=== PATIENT | female | born 1995 | race Caucasian/White ===

== ENCOUNTER 2016-03-17 22:07 | Emergency (ER) | payer SELFPAY ==
--- NOTE | 2016-03-17 22:36 | ER Document Report ---
ED Psych Disorder / Suicide - General Chief Complaint: Overdose Stated Complaint: SUICIDAL IDEATION Time seen by provider: 22:36 Mode of Arrival: Stretcher Information source: Patient TRAVEL OUTSIDE OF THE [place] IN LAST 30 DAYS: No - HPI Patient complains to provider of: Overdose, Suicidal ideation, Suicidal plan, Suicidal attempt, Self injury Onset: This evening Quality of pain: No pain Suicide Risk Factors: Depressed, No spouse, Substance abuse Suicide Attempt Method: Overdose, Stabbing/Cutting Injury to: Upper extremity - Left forearm Normal mood: No Associated symptoms: Depressed, Flat affect Similar symptoms previously: Yes Recently seen / treated by doctor: No Notes: Patient is a 20-year-old female who presents to the emergency room via EMS for suicidal ideation with a plan to overdose, states that she attempted to overdose on four 5 mg Percocets, 0.5 mg of Xanax and whiskey, she also recently caused some superficial lacerations to her left forearm and has a history of cutting previously, she reports that these feelings stem from her ex-girlfriend recently trying to contact her when she finally felt she was over this person, patient does have a history of mental illness in the past, has not been in any type of therapy recently and does not take any prescribed medications at the present time - Related Data Allergies/Adverse Reactions: No Known Allergies Allergy (Verified 02/12/16 14:50) Past Medical History - General Information source: Patient - Social History Smoking Status: Current Every Day Smoker Frequency of alcohol use: Occasional Drug Abuse: Marijuana, Prescription drugs Family History: Reviewed & Not Pertinent Psychiatric Medical History: Reports: Hx Depression Surgical Hx: Negative - Immunizations Hx Diphtheria, Pertussis, Tetanus Vaccination: Yes Review of Systems - Review of Systems Constitutional: No symptoms reported EENT: No symptoms reported Cardiovascular: No symptoms reported Respiratory: No symptoms reported Gastrointestinal: No symptoms reported Genitourinary: No symptoms reported Female Genitourinary: No symptoms reported Musculoskeletal: No symptoms reported Skin: See HPI Hematologic/Lymphatic: No symptoms reported Neurological/Psychological: See HPI -: Yes All other systems reviewed and negative Physical Exam - Vital signs Vitals: Temp Pulse Resp BP Pulse Ox 98.2 F 85 16 142/80 H 100 03/17/16 22:19 03/17/16 22:19 03/17/16 22:19 03/17/16 22:19 03/17/16 22:19 Interpretation: Normal - General General appearance: Appears well, Alert - HEENT Head: Normocephalic, Atraumatic Eyes: Normal Pupils: PERRL - Respiratory Respiratory status: No respiratory distress Chest status: Nontender Breath sounds: Normal Chest palpation: Normal - Cardiovascular Rhythm: Regular Heart sounds: Normal auscultation Murmur: No - Abdominal Inspection: Normal Distension: No distension Bowel sounds: Normal Tenderness: Nontender Organomegaly: No organomegaly - Back Back: Normal, Nontender - Extremities General upper extremity: Nontender, Normal color, Normal ROM, Normal temperature General lower extremity: Normal inspection, Nontender, Normal color, Normal ROM , Normal temperature, Normal weight bearing. No: Bassem's sign Forearm: Other - Multiple superficial self-inflicted lacerations to left forearm - Neurological Neuro grossly intact: Yes Cognition: Normal Orientation: AAOx4 [place] Coma Scale Eye Opening: Spontaneous [place] Coma Scale Verbal: Oriented [place] Coma Scale Motor: Obeys Commands [place] Coma Scale Total: 15 Speech: Normal Motor strength normal: LUE, RUE, LLE, RLE Sensory: Normal - Psychological Associated symptoms: Depressed, Flat affect - Skin Skin Temperature: Warm Skin Moisture: Dry Skin Color: Normal Course - Re-evaluation Re-evalutation: 03/18/16 00:25 Patient will be held on IVC paperwork until evaluation by mental health team in the morning, she is otherwise medically cleared, she reports her last tetanus shot was approximately one year ago and up to date - Vital Signs Vital signs: Temp Pulse Resp BP Pulse Ox 98.2 F 85 16 142/80 H 100 03/17/16 22:19 03/17/16 22:19 03/17/16 22:19 03/17/16 22:19 03/17/16 22:19 - Laboratory Result Diagrams: 03/17/16 22:30 03/17/16 22:30 Laboratory results interpreted by me: 03/17/16 03/17/16 22:30 22:30 MCV 98 H Potassium 3.4 L Chloride 108 H BUN 6 L Total Bilirubin 1.7 H Salicylates < 1.0 L Acetaminophen < 10 L - EKG Interpretation by Tx EKG shows normal: Sinus rhythm Rate: Normal Rhythm: NSR Discharge - Discharge Clinical Impression: Suicidal ideation, Self-destructive behavior Condition: Stable Disposition: PSYCH HOSP/UNIT
[2016-03-17 22:47] LABS: ABSOLUTE BASOPHILS # (AUTO) 0.1 10^3/uL (0.0-0.2); ABSOLUTE EOSINOPHILS # (AUTO) 0.1 10^3/uL (0.0-0.6); ABSOLUTE LYMPHOCYTES (AUTO) 3.3 10^3/uL (0.5-4.7); ABSOLUTE MONOCYTES (AUTO) 0.8 10^3/uL (0.1-1.4); BASOPHILS % (AUTO) 0.7 % (0-2); EOSINOPHILS % (AUTO) 1.6 % (0-6); HEMATOCRIT 43.6 % (36.0-47.0); HEMOGLOBIN 14.5 g/dL (12.0-15.5); HGB HCT DIFFERENCE -0.1; LYMPHOCYTES % (AUTO) 35.2 % (13-45); MEAN CORPUSCULAR HEMOGLOBIN 32.5 pg (27.0-33.4); MEAN CORPUSCULAR HGB CONC 33.2 g/dL (32.0-36.0); MEAN CORPUSCULAR VOLUME 98 fl (80-97); MONOCYTES % (AUTO) 8.1 % (3-13); RED BLOOD COUNT 4.46 10^6/uL (3.72-5.28); RED CELL DISTRIBUTION WIDTH 13.8 % (11.5-14.0); SEGMENTED NEUTROPHILS % (AUTO) 54.4 % (42-78); WHITE BLOOD COUNT 9.3 10^3/uL (4.0-10.5)
[2016-03-17 23:07] LABS: ALANINE AMINOTRANSFERASE 25 U/L (9-52); ALBUMIN 4.8 g/dL (3.5-5.0); ALCOHOL 87 mg/dL (NONE DETECTED); ALKALINE PHOSPHATASE 64 U/L (38-126); ANION GAP 13 (5-19); ASPARTATE AMINO TRANSFERASE 20 U/L (14-36); BILIRUBIN,TOTAL 1.7 mg/dL (0.2-1.3); BLOOD UREA NITROGEN 6 mg/dL (7-20); CALCIUM 9.5 mg/dL (8.4-10.2); CARBON DIOXIDE 24 mmol/L (22-30); CHLORIDE 108 mmol/L (98-107); CREATININE RESULT 0.75 mg/dL (0.52-1.25); GLUCOSE 76 mg/dL (75-110); POTASSIUM 3.4 mmol/L (3.6-5.0); TOTAL PROTEIN 7.4 g/dL (6.3-8.2)
[2016-03-17 23:15] LABS: APPEARANCE,URINE SLIGHTLY-CLOUDY; BILIRUBIN,URINE NEGATIVE (NEGATIVE); GLUCOSE, URINE NEGATIVE (NEGATIVE); KETONES,URINE NEGATIVE (NEGATIVE); LEUKOCYTE ESTERASE,URINE NEGATIVE (NEGATIVE); NITRITE,URINE NEGATIVE (NEGATIVE); PROTEIN,URINE NEGATIVE (NEGATIVE); URINE SPECIFIC GRAVITY 1.011; UROBILINOGEN,URINE NEGATIVE mg/dL (<2.0)
[2016-03-17 23:33] LABS: URINE BARBITURATES SCREEN NEGATIVE; URINE METHADONE SCREEN NEGATIVE; URINE PHENCYCLIDINE SCREEN NEGATIVE
[2016-03-18] MEDS ORDERED: IBUPROFEN 600 MG TABLET PO ONE (02:05)
[2016-03-18] MEDS ORDERED: ONDANSETRON 4 MG TAB.RAPDIS PO ONE (02:30)
--- NOTE | 2016-03-18 09:29 | ER Document Report ---
Doctor's Note Notes: 03/18/16 09:27 I have evaluated this pt. this am and she has no c/o a this time. She feels all of her needs are being met and her physical exam is normal. She is awaiting disposition per mental health.
--- NOTE | 2016-03-18 09:56 | PSYCHOLOGICAL NOTE ---
Psych Note - Psych Note Psych Note: Patient is a 20-year-old female who presents to the emergency room via EMS for suicidal ideation with a plan to overdose, states that she attempted to overdose on four 5 mg Percocets, 0.5 mg of Xanax. Patient additionally endorsed taking approximately 6 shots of whiskey. Patient does have a known history of substance abuse, as well as history of prior suicide attempts, per her medical record. Patient was last seen for psychiatric concerns in August 2015 when she was voluntarily seeking assistance for detox. Patient was held over night under IVC and this morning states she was just under the influence ( Percocets and ETOH) and made a poor choice. Patient states she has been upset over her ex-girlfriend, and conflicting information regarding her intentions, etc. Patient denies wanting to by suicide. Patient states she did f/u and go to detox after her last visit, but reports they are all the same and she did not follow though with outpatient treatment upon her discharge. Patient states she is working 40 hours per week and has just secured insurance "[employer]" and needs to find a psychiatrist. Patient states her biggest stressor right now is her ex-girlfriend and she understands she has a choice to make in regards to maintaining communication with her. Patient states she lives with some friends , whom she describes as "just sort of there," but is able to identify supportive friends, who would be willing to maybe take her home and encourage her to follow up. Patient provided consent to speak with her friend Riley. Patient's friend, Riley states: left vm requesting return contact. Friend later presented bedside and states he is concerned as she was not very forthcoming with information; however, states he will "make her" call tomorrow morning to schedule an appointment. Patient is A&Ox4. Mood is euthymic with flat to normal affect. Patient denies suicidal/homicidal ideaitons, intent, plan, or means. Patient denies A/V H; delusions not noted. Thought processes were guarded. Conversational speech was low for rate, tone, and prosody. Intellectual abilities were estimated within average range. Attention and focus were fair. Insight, judgment, and impulse control were poor., 311 (F32.9) Unspecified Depressive Disorder Patient's presenting symptoms are similar to that of an Depressive Disorder and cause clinically significant distress in all domains of her life. At this time, and in this setting (ED) there is not enough information to make a more specific diagnosis. 292.9 (F11.99) Unspecified Opioid Use Disorder Patient's presenting symptoms are similar to that of an Opioid Use Disorder and cause clinically significant distress in all domains of her life. At this time, and in this setting (ED) there is not enough information to make a more specific diagnosis. 292.9 F15.99 Unspecified Stimulant Use Disorder Patient's presenting symptoms are similar to that of an Amphetamine Use Disorder and cause clinically significant distress in all domains of her life. At this time, and in this setting (ED) there is not enough information to make a more specific diagnosis. Patient is psychiatrically cleared for discharge and recommended to rescind IVC. Patient was encouraged to stop using drugs/alcohol. Patient recommended to follow up with an outpatient provider of her choice. She denies wanting to follow up with [facility] who specializes in substance abuse, and instead states she follow up with [facility]. Patient provided resources. Friend is bedside to assist patient home and is agreeable with plan of care. I consulted with Dr. Styles in regards to the care and management of this patient. ED MD is in agreement with disposition and recommendations.
--- NOTE | 2016-03-18 10:06 | EKG REPORT ---
SEVERITY:- NORMAL ECG - SINUS RHYTHM : Confirmed by: Darby Dunne MD 18-Mar-2016 10:05:56
[2016-03-18 12:39] VITALS: BP 120/67
== END 2016-03-18 12:39 | disposition home or self-care (01) ==
LOC: ER 22:07
DX: R45.851 Suicidal ideations (principal); F32.9 Major depressive disorder, single episode, unspecified; F17.200 Nicotine dependence, unspecified, uncomplicated; F11.99 Opioid use, unspecified with unspecified opioid-induced disorder; F15.99 Other stimulant use, unspecified with unspecified stimulant-induced disorder; Z91.5 Personal history of self-harm
CPT/HCPCS: 93005; 36415; 99285; 80307 ×4; 84703; 85025; 80053; 81001; 93010; S0119